=== PATIENT | female | born 1995 | race Caucasian/White ===

== ENCOUNTER 2018-05-02 08:00 | Emergency (ER) | payer BC ==
--- NOTE | 2018-05-02 08:08 | EDPHY ---
H & P Time Seen by Provider: 05/02/18 08:08 HPI/ROS: CHIEF COMPLAINT: Nausea and vomiting for 2 days HISTORY OF PRESENT ILLNESS: Patient is had symptoms recurrent for the last 2 years. 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 In [place] she was worked up for this within the last year including CT, gallbladder ultrasound, HIDA scan, upper endoscopy. She was prescribed hyoscyamine. Patient had symptoms since Sunday with recurrent nausea vomiting and upper abdominal pain. Pain is on the right side radiates a little bit to the back, symptoms worse with oral intake. Not associated with fever chills or diarrhea. REVIEW OF SYSTEMS: Eye: no change in vision ENT: no sore throat Cardiac: no chest pain or syncope Pulmonary: no cough or SOB Abdomen: HPI Musculoskeletal: no back pain Skin: no rash Neuro: no headache Constitutional: no fever : no urinary symptoms A comprehensive 10 point review of systems is otherwise negative aside from elements mentioned in the history of present illness. PAST MEDICAL HISTORY: Finger and foot surgery Social history: Originally from [place] as documented above, no alcohol General Appearance: Alert and conversant, cooperative. Eyes: No scleral icterus. ENT, Mouth: Dry mucous membranes. Respiratory: Normal respiratory effort, breath sounds equal, lungs are clear to auscultation. Cardiovascular: Regular rate and rhythm. Gastrointestinal: Some right upper quadrant tenderness but negative Graff sign and no peritoneal signs. No McBurney's point tenderness. Neurological: Alert, face symmetric, normal motor and sensory in extremities. Skin: Warm and dry, no rashes. Musculoskeletal: No peripheral edema. Psychiatric: Not agitated. Emergency Department course/MDM: Zofran 4 mg IV for nausea vomiting, normal saline 1 L IV, labs to include LFTs and lipase and test. 1058: Re-examined, still has some nausea and abdominal pain. Haldol and Benadryl given. 1259: Re-evaluated, feels better, no nausea vomiting, no abdominal pain. GI referral. More likely to be acute exacerbation of her known chronic problem for the last 2 years. Smoking Status: Never smoked Constitutional: Initial Vital Signs Temperature (C) 36.8 C 05/02/18 08:05 Heart Rate 120 H 05/02/18 08:05 Respiratory Rate 30 H 05/02/18 08:05 Blood Pressure 135/74 H 05/02/18 08:05 O2 Sat (%) 98 05/02/18 08:05 O2 Delivery Mode Room Air Allergies/Adverse Reactions: hydromorphone [From Dilaudid] Allergy (Verified 05/02/18 08:03) Home Medications: Medication Instructions Recorded [place] 24 Fe Tablet 05/02/18 Hyoscyamine Sulfate 05/02/18 Spironolactone 05/02/18 Medical Decision Making - Data Points Laboratory Results: Laboratory Results 05/02/18 08:15 05/02/18 08:15 05/02/18 05/02/18 05/02/18 08:15 08:15 08:15 WBC 11.85 10^3/uL H 10^3/uL (3.80-9.50) RBC 5.05 10^6/uL 10^6/uL (4.18-5.33) Hgb 14.5 g/dL g/dL (12.6-16.3) Hct 43.8 % % (38.0-47.0) MCV 86.7 fL fL (81.5-99.8) MCH 28.7 pg pg (27.9-34.1) MCHC 33.1 g/dL g/dL (32.4-36.7) RDW 14.6 % % (11.5-15.2) Plt Count 373 10^3/uL 10^3/uL (150-400) MPV 11.1 fL fL (8.7-11.7) Neut % (Auto) 73.4 % % (39.3-74.2) Lymph % (Auto) 18.2 % % (15.0-45.0) [place] % (Auto) 7.2 % % (4.5-13.0) Eos % (Auto) 0.3 % L % (0.6-7.6) Baso % (Auto) 0.6 % % (0.3-1.7) Nucleat RBC Rel Count 0.0 % % (0.0-0.2) Absolute Neuts (auto) 8.69 10^3/uL H 10^3/uL (1.70-6.50) Absolute Lymphs (auto) 2.16 10^3/uL 10^3/uL (1.00-3.00) Absolute Monos (auto) 0.85 10^3/uL H 10^3/uL (0.30-0.80) Absolute Eos (auto) 0.04 10^3/uL 10^3/uL (0.03-0.40) Absolute Basos (auto) 0.07 10^3/uL 10^3/uL (0.02-0.10) Absolute Nucleated RBC 0.00 10^3/uL 10^3/uL (0-0.01) Immature Gran % 0.3 % % (0.0-1.1) Immature Gran # 0.04 10^3/uL 10^3/uL (0.00-0.10) Sodium 138 mEq/L mEq/L (135-145) Potassium 3.6 mEq/L mEq/L (3.3-5.0) Chloride 105 mEq/L mEq/L (97-110) Carbon Dioxide 18 mEq/l L mEq/l (22-31) Anion Gap 15 mEq/L H mEq/L (6-14) BUN 14 mg/dL mg/dL (7-23) Creatinine 0.8 mg/dL mg/dL (0.6-1.0) Estimated GFR > 60 Glucose 118 mg/dL H mg/dL (70-100) Calcium 10.8 mg/dL H mg/dL (8.5-10.4) Phosphorus 2.1 mg/dL L mg/dL (2.5-4.5) Total Bilirubin 1.1 mg/dL mg/dL (0.1-1.4) Conjugated Bilirubin 0.3 mg/dL mg/dL (0.0-0.5) Unconjugated Bilirubin 0.8 mg/dL mg/dL (0.0-1.1) AST 34 IU/L IU/L (14-46) ALT 24 IU/L IU/L (9-52) Alkaline Phosphatase 58 IU/L IU/L (38-126) Total Protein 8.6 g/dL H g/dL (6.3-8.2) Albumin 5.1 g/dL H g/dL (3.5-5.0) Lipase 149 IU/L IU/L (23-300) Beta HCG, Qual NEGATIVE Medications Given: Discontinued Medications Diphenhydramine HCl (Benadryl Injection) 25 mg IVP EDNOW ONE Stop: 05/02/18 11:00 Last Admin: 05/02/18 11:09 Dose: 25 mg Haloperidol Lactate (Haldol Injection) 2.5 mg IVP EDNOW ONE Stop: 05/02/18 11:00 Last Admin: 05/02/18 11:09 Dose: 2.5 mg Sodium Chloride (Ns) 1,000 mls @ 0 mls/hr IV EDNOW ONE; Wide Open PRN Reason: Protocol Stop: 05/02/18 08:18 Last Admin: 05/02/18 08:21 Dose: 1,000 mls Sodium Chloride (Ns) 1,000 mls @ 0 mls/hr IV EDNOW ONE; Wide Open PRN Reason: Protocol Stop: 05/02/18 08:50 Last Admin: 05/02/18 09:08 Dose: 1,000 mls Ondansetron HCl (Zofran) 4 mg IVP EDNOW ONE Stop: 05/02/18 08:18 Last Admin: 05/02/18 08:21 Dose: 4 mg Departure - Departure Disposition: Home, Routine, Self-Care Clinical Impression: Abdominal pain Qualifiers: Abdominal location: right upper quadrant Qualified Code(s): R10.11 - Right upper quadrant pain Nausea & vomiting Qualifiers: Vomiting type: unspecified Vomiting Intractability: non-intractable Qualified Code(s): R11.2 - Nausea with vomiting, unspecified Condition: Good Instructions: Acute Nausea and Vomiting (ED), Abdominal Pain (ED) Additional Instructions: You need to return to the emergency department immediately if you develop worsening or severe pain, fever, vomiting or you are not completely better in 8- 12 hours. Referrals: Jeannine Prabhakar MD [Medical Doctor] - 5-7 days, call for appt.
[2018-05-02] MEDS ORDERED: NS 1,000 ML IV ONE ×2 (08:17→08:49)
[2018-05-02] MEDS ORDERED: ONDANSETRON 4 MG/2 ML VIAL IVP ONE (08:17)
[2018-05-02 08:28] LABS: PLATELET COUNT 373 10^3/uL (150-400)
[2018-05-02] MEDS ORDERED: HALOPERIDOL LACT 5 MG/ML INJ IVP ONE (10:59)
[2018-05-02 13:14] VITALS: BP 112/78
== END 2018-05-02 13:14 | disposition home or self-care (01) ==
DX: R10.11 Right upper quadrant pain (principal); R11.2 Nausea with vomiting, unspecified; E86.9 Volume depletion, unspecified
CPT/HCPCS: J1200; J1630; J2405